=== PATIENT | male | born 1975 | race Caucasian/White ===

== ENCOUNTER 2016-07-23 15:01 | Emergency (ER) | payer BC ==
[~2016-07-23] VITALS: Ht 180.3 cm; Wt 72.0 kg
[~2016-07-23 15:01] MED LIST: IBP200T PO; TIOT18CA IH
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
--- OUTSIDE RECORDS SUMMARY | 2016-07-23 15:09 | XMS REPORT | Continuity of Care Document ---
Author Author [facility] Address Unknown Phone Unavailable Allergies Active Description Code Type Severity Reaction Onset Reported/Identified Relationship to Patient Clinical Status Yes No Known Drug Allergies [id number] Drug Allergy Unknown N/ A 02/14/2013 Medications [...] PT DECISION F 12/02/2015 WILGERS, MILA L FLAKE DRIER Ot R55 SYNCOPE AND COLLAPSE 12/02/2015 Ot 305.1 TOBACCO USE DISORDER 12/02/2015 Ot 724.2 LUMBAGO 12/02/2015 Ot 786.2 COUGH 12/02/2015 Ot Z53.20 PROC/TRTMT NOT CRD OUT BEC PT DECISION F 12/02/2015 WILGERS, MILA L [employer] DRIER Ot R55 SYNCOPE AND COLLAPSE 12/02/2015 Ot 305.1 TOBACCO USE DISORDER 12/02/2015 Ot 724.2 LUMBAGO 12/02/2015 Ot 786.2 COUGH 12/02/2015 Ot Z53.20 PROC/TRTMT NOT CRD OUT BEC PT DECISION F 12/02/2015 WILGERS, MILA L F[employer]KE DRIER Ot R55 SYNCOPE AND COLLAPSE 12/03/2015 WILGERS, MILA L FLAKE DRIER Ot R00.2 PALPITATIONS 12/07/2015 JONO GUIDO, [place] Rocha Ot R55 SYNCOPE AND COLLAPSE 12/07/2015 JONO GUIDO, [place] Rocha Ot Z72.0 TOBACCO USE 12/08/2015 WILGERS, MILA L F[employer]KE DRIER Ot R55 SYNCOPE AND COLLAPSE 12/13/2015 Ot 305.1 TOBACCO USE DISORDER 12/13/2015 Ot 724.2 LUMBAGO 12/13/2015 Ot 786.2 COUGH 12/13/2015 Ot Z53.20 PROC/TRTMT NOT CRD OUT BEC PT DECISION F 12/13/2015 WILGERS, MILA L F[employer]KE DRIER Ot R55 SYNCOPE AND COLLAPSE 12/13/2015 WILGERS, MILA L FLAKE DRIER Ot R00.2 PALPITATIONS 12/13/2015 WILGERS, MILA L FLAKE DRIER Ot R00.2 PALPITATIONS 12/15/2015 WILGERS, MILA L FLAKE DRIER Ot R55 SYNCOPE AND COLLAPSE 12/15/2015 WILGERS, MILA L FLAKE DRIER Ot R00.2 PALPITATIONS 12/24/2015 Ot 305.1 TOBACCO USE DISORDER 12/24/2015 Ot 724.2 LUMBAGO 12/24/2015 Ot 786.2 COUGH 12/24/2015 Ot Z53.20 PROC/TRTMT NOT CRD OUT BEC PT DECISION F 12/24/2015 MILA MCCABE FLAKE DRIER Ot R55 SYNCOPE AND COLLAPSE 12/24/2015 MILA MCCABE FLAKE DRIER Ot R00.2 PALPITATIONS 12/24/2015 Ot 305.1 TOBACCO USE DISORDER 12/24/2015 Ot 724.2 LUMBAGO 12/24/2015 Ot 786.2 COUGH 12/24/2015 Ot Z53.20 PROC/TRTMT NOT CRD OUT BEC PT DECISION F 12/24/2015 MILA MCCABE FLAKE DRIER Ot R55 SYNCOPE AND COLLAPSE 12/24/2015 MILA MCCABE FLAKE DRIER Ot R00.2 PALPITATIONS 01/17/2016 Ot 305.1 TOBACCO USE DISORDER 01/17/2016 Ot 724.2 LUMBAGO 01/17/2016 Ot 786.2 COUGH 01/17/2016 Ot Z53.20 PROC/TRTMT NOT CRD OUT BEC PT DECISION F 01/17/2016 MILA MCCABE FLAKE DRIER Ot R55 SYNCOPE AND COLLAPSE 01/17/2016 WILMILA TURK FLAKE DRIER Ot R00.2 PALPITATIONS 01/24/2016 Ot 305.1 TOBACCO USE DISORDER 01/24/2016 Ot 724.2 LUMBAGO 01/24/2016 Ot 786.2 COUGH 01/24/2016 Ot Z53.20 PROC/TRTMT NOT CRD OUT BEC PT DECISION F 01/24/2016 MILA MCCABE FLAKE DRIER Ot R55 SYNCOPE AND COLLAPSE 01/24/2016 MILA MCCABE FLAKE DRIER Ot R00.2 PALPITATIONS 01/26/2016 Luis Maharaj Ot [...] Status Pt. Type Provider Facility Loc./Unit Complaint [id number] 11/25/2015 09:19:00 2015 11:55:00 DIS Emergency JONO GUIDO, [place] Rocha [facility] ED [id number] 02/14/2013 19:28:00 2012 19:55:00 DIS Emergency SHADE ZHANG RAMESH Rosario [facility] ED [id number] 01/24/2016 18:14:00 ACT Outpatient Luis Maharaj [facility] LAB [id number] 11/29/2015 16:15:00 ACT Outpatient [facility] LAB LAB DROP OFF FROM [facility] [id number] 11/29/2015 15:58:00 ACT Outpatient [facility] RAD RAD AND RT [id number] 11/25/2015 09:21:00 ACT Outpatient [facility] EMS EMS REFUSAL [id number] 02/16/2012 15:30:00 Document Registration [id number] 01/11/2012 14:31:00 Document Registration
[2016-07-23 15:10] VITALS: RESP 18
[2016-07-23] MEDS ORDERED: HYDR-3702 PO (15:20)
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
[2016-07-23] MEDS ORDERED: TETANUS, DIPTHERIA, PERTUSSIS (ADACELL) VACCINE 0.5 ML VIAL IM ONE (16:00)
[2016-07-23] MEDS ORDERED: BACITRACIN OINTMENT 0.9 GM PACKET TOP ONE (16:00)
[2016-07-23 16:15] VITALS: BP 110/69
== END 2016-07-23 16:10 | disposition home or self-care (01) ==
LOC: ED 15:04
DX: S21.112A Laceration without foreign body of left front wall of thorax without penetration into thoracic cavity, initial encounter (principal); W33.01XA Accidental discharge of shotgun, initial encounter; Y93.89 Activity, other specified; Y92.39 Other specified sports and athletic area as the place of occurrence of the external cause; Y99.8 Other external cause status
CPT/HCPCS: 71020; 90471; 90715; 99282; 99283